=== PATIENT | male | born 1960 | race Caucasian/White ===

== ENCOUNTER 2022-03-09 23:51 | Emergency (ER) | payer BC ==
[~2022-03-09] VITALS: Ht 177.8 cm; Wt 86.0 kg
[2022-03-10] MEDS ORDERED: ACETAMINOPHEN 500MG TABLET PO ONE (01:00)
[2022-03-10 01:21] LABS: BASOPHILS % 0.5 % (0.0-2.0); HEMATOCRIT. 42.5 % (42.0-52.0); HEMOGLOBIN. 14.2 g/dL (14.0-18.0); LYMPHOCYTES % 9.6 % (20.0-50.0); MEAN CORPUSCULAR HEMOGLOBIN 29.9 pg (28.0-32.0); MEAN CORPUSCULAR VOLUME 89.6 fL (80.0-94.0); MEAN PLATELET VOLUME 8.4 fl (7.4-10.4); MONOCYTES % 4.5 % (2.0-8.0); NEUTROPHILS % 84.4 % (40.0-76.0); PLATELET 191 x1000/uL (130-400); RED BLOOD CELL COUNT 4.74 mill/uL (4.7-6.1); RED CELL DISTRIBUTION WIDTH 13.2 % (11.6-14.6)
[2022-03-10 01:29] LABS: CHLORIDE 105 mEq/L (98-107)
[2022-03-10 01:35] LABS: ETHANOL BLOOD 111 mg/dL
[2022-03-10 03:20] VITALS: BP 118/63
== END 2022-03-10 03:46 | disposition home or self-care (01) ==
LOC: ER 23:51
DX: T40.711A Poisoning by cannabis, accidental (unintentional), initial encounter (principal); S00.03XA Contusion of scalp, initial encounter; S00.31XA Abrasion of nose, initial encounter; S00.83XA Contusion of other part of head, initial encounter; R55 Syncope and collapse; R51.9 Headache, unspecified; R03.0 Elevated blood-pressure reading, without diagnosis of hypertension; W22.8XXA Striking against or struck by other objects, initial encounter; Y93.89 Activity, other specified; Y92.252 Music hall as the place of occurrence of the external cause
CPT/HCPCS: 36415; 70450; 80048; 80320; 85025; 93005; 99285; Z7610; G0480